=== PATIENT | female | born 1975 | race American Indian/Alaskan Native ===

== ENCOUNTER 2023-12-24 02:45 | Inpatient (IN) | payer OTHER ==
[~2023-12-24] VITALS: Ht 157.5 cm; Wt 109.3 kg
--- OUTSIDE RECORDS SUMMARY | 2023-12-24 02:46 | XMS ---
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 [place] VISIT COUNT (12 MO.) 1 [place] [place] TOTAL 1 NOTE: Visits indicate total known visits. ED/UCC VISIT TRACKING (12 MO.) 12/24/2023 02:45 [facility] TYPE: Emergency COMPLAINT: - ABD PAIN INPATIENT VISIT TRACKING (12 MO.) No inpatient visits to display in this time frame [id number]
[2023-12-24 03:10] LABS: BASOPHILS 0.4 % (0-2); EOSINOPHILS 0.7 % (0-6); HEMATOCRIT 40.1 % (35.0-50.0); HEMOGLOBIN 13.3 g/dL (12.0-18.0); LYMPHOCYTES 12.2 % (24-44); MCH 29.7 (27-36); MCHC 33.1 g/dl (30-36); MCV 89.8 fl (81-99); MONOCYTES 4.8 % (0-12); NEUTROPHILS 81.9 % (39-80); PLATELET COUNT 300 K/uL (140-440); RBC 4.47 M/ul (4.3-5.7); RDW 13.8 (10.5-15.0)
[2023-12-24] MEDS ORDERED: LACTATED RINGER'S 1,000 ML IV ONE (03:15)
[2023-12-24] MEDS ORDERED: KETOROLAC TROMETHAMINE 30 MG/ML VIAL IV ONE (03:15)
[2023-12-24] MEDS ORDERED: FAMOTIDINE 20 MG/ 2 ML VIAL IV ONE (03:15)
[2023-12-24] MEDS ORDERED: ondansetron HCL 4 MG/2 ML VIAL IV ONE (03:15)
[2023-12-24] MEDS ORDERED: HYDROmorphone HCL 1 MG/ML SYR IV PRN ×2 (03:15→14:15)
[2023-12-24 03:21] LABS: BILIRUBIN, URINE NEGATIVE (negative); BLOOD/HGB, URINE TRACE-L (Negative); KETONE, URINE NEGATIVE (Negative); LEUK ESTERASE, URINE NEGATIVE (negative); NITRITE, URINE NEGATIVE (negative); PH, URINE 7.5 (5-7)
[2023-12-24 03:28] LABS: EPITHELIAL CELLS, URINE SQUAMOUS 1+ /lpf (0-1+)
[2023-12-24 03:29] LABS: BACTERIA, URINE RARE /hpf (negative); CASTS, URINE NONE SEEN \\lpf; CRYSTALS, URINE NONE SEEN (0-1+); RED BLOOD CELLS, URINE 0-1 /hpf (0-5); REFLEX CULTURE, URINE No (No); WHITE BLOOD CELLS, URINE 0-1 /HPF (0-5)
[2023-12-24 03:31] LABS: ALBUMIN 3.6 g/dL (3.4-5.0); ALBUMIN/GLOBULIN RATIO 0.95 (1.1-2.4); ANION GAP 11.9 (7-21); BILIRUBIN, TOTAL 0.5 ng/dL (0.2-1.0); BUN/CREATININE RATIO 12.5 (6.0-28.6); CREATININE, SERUM 0.8 mg/dL (0.55-1.02); POTASSIUM 3.9 mmol/L (3.5-5.1); PROTEIN, TOTAL 7.4 g/dL (6.4-8.2)
[2023-12-24] MEDS ORDERED: LACTATED RINGER'S 1,000 ML IV SCH ×2 (03:45→06:00)
[2023-12-24] MEDS ORDERED: PIPERACILLIN/TAZOBACTAM 3.375 GM in DEXTROSE 5% 100 ML IV ONE (03:45)
[2023-12-24 03:56] LABS: LACTIC ACID, BLOOD 0.6 mmol/L (0.4-2.0)
[2023-12-24] MEDS ORDERED: DEXTROSE 5% 100 ML IV ONE (04:09)
[2023-12-24] MEDS ORDERED: AMLODIPINE BESYL5 MG PO (04:48)
[2023-12-24] MEDS ORDERED: ACYCLOVIR200 MG PO (04:48)
[2023-12-24] MEDS ORDERED: CYCLOBENZAPRINE10 MG PO (04:49)
[2023-12-24] MEDS ORDERED: VENTOLIN HFA18 GM INH (04:49)
[2023-12-24] MEDS ORDERED: ATORVASTATIN CA10 MG PO (04:49)
[2023-12-24] MEDS ORDERED: LO-DOSE ASPIRIN81 MG PO (04:50)
[2023-12-24] MEDS ORDERED: LOSARTAN POTASS50 MG PO (04:50)
[2023-12-24] MEDS ORDERED: MONTELUKAST SOD10 MG PO (04:51)
[2023-12-24] MEDS ORDERED: TRAZODONE HCL50 MG PO (04:51)
[2023-12-24] MEDS ORDERED: NAPROXEN500 MG PO (04:51)
[2023-12-24] MEDS ORDERED: DIAZEPAM5 MG PO (04:52)
[2023-12-24 06:35] LABS: CHOLESTEROL/HDL RATIO 3.3
[2023-12-24 07:39] VITALS: BP 137/82
[2023-12-24] MEDS ORDERED: ACETAMINOPHEN 325 MG TAB PO PRN (07:45)
[2023-12-24] MEDS ORDERED: PIPERACILLIN/TAZOBACTAM 4.5 GM in DEXTROSE 5% 100 ML IV SCH (08:00)
[2023-12-24] MEDS ORDERED: PANTOPRAZOLE SODIUM 40 MG TABEC PO SCH (09:00)
[2023-12-24 09:20] VITALS: BP 143/83
[2023-12-24] MEDS ORDERED: PHARMACY RENAL DOSE ADJUSTMENT 1 DOSE MISC PO SCH (12:00)
[2023-12-24 12:33] LABS: BASOPHILS 0.4 % (0-2); EOSINOPHILS 0.6 % (0-6); HEMATOCRIT 38.5 % (35.0-50.0); HEMOGLOBIN 12.6 g/dL (12.0-18.0); LYMPHOCYTES 10.7 % (24-44); MCH 29.7 (27-36); MCHC 32.7 g/dl (30-36); MCV 90.9 fl (81-99); MONOCYTES 5.5 % (0-12); NEUTROPHILS 82.8 % (39-80); PLATELET COUNT 261 K/uL (140-440); RBC 4.23 M/ul (4.3-5.7); RDW 13.4 (10.5-15.0)
[2023-12-24 12:38] LABS: ANION GAP 13.8 (7-21); BUN/CREATININE RATIO 6.02 (6.0-28.6); CALCIUM 8.9 mg/dL (8.5-10.1); CREATININE, SERUM 0.83 mg/dL (0.55-1.02); POTASSIUM 3.8 mmol/L (3.5-5.1)
[2023-12-24 13:40] VITALS: BP 143/85
[2023-12-24] MEDS ORDERED: ondansetron HCL 4 MG/2 ML VIAL IV PRN (18:00)
[2023-12-24] MEDS ORDERED: PROCHLORPERAZINE EDISYLATE 10 MG/2 ML VIAL IV PRN (18:00)
[2023-12-24 18:19] VITALS: BP 149/87
[2023-12-24 20:21] VITALS: BP 137/88
[2023-12-24 21:51] VITALS: BP 137/88
[2023-12-25] VITALS (10 sets, daily range): BP systolic 122–145; BP diastolic 74–88
[2023-12-25 05:34] LABS: BASOPHILS 0.5 % (0-2); EOSINOPHILS 0.4 % (0-6); HEMATOCRIT 37.7 % (35.0-50.0); HEMOGLOBIN 12.3 g/dL (12.0-18.0); LYMPHOCYTES 12.7 % (24-44); MCH 29.8 (27-36); MCHC 32.5 g/dl (30-36); MCV 91.5 fl (81-99); MONOCYTES 6.2 % (0-12); NEUTROPHILS 80.2 % (39-80); PLATELET COUNT 272 K/uL (140-440); RBC 4.12 M/ul (4.3-5.7); RDW 13.5 (10.5-15.0)
--- NOTE | 2023-12-25 05:34 | CONS ---
[facility] [address] [place], [place] [address] Signed DATE OF CONSULTATION: 12/24/2023 CHIEF COMPLAINT: Epigastric abdominal pain. HISTORY OF PRESENT ILLNESS: Mari is a 48-year-old obese female, who just had her right knee replaced on 10/14/2023 at [facility]. She said that she has been on a lot of different medications including tramadol, Tylenol, and naproxen. Things seem to be going well. For the last two days, she has had increasing epigastric and right upper quadrant abdominal pain radiating through to her back. She finally came to the emergency room for evaluation. She is a little tender more towards the epigastric area. White count was elevated. Alkaline phosphatase is up a little bit, but the ALT and AST are normal along with the total bilirubin. Lipase is slightly up at 90. She underwent an ultrasound and this was unremarkable. She then had a CT scan and it shows some inflammation and haziness around the inferior portion of head of the pancreas and the duodenum. She has one coarse calcification in that area. She was given some Zosyn and admitted to our internal medicine service. I have been asked to see her as a local general surgeon on-call. PAST MEDICAL HISTORY: Asthma and obesity. Also hypertension, hyperlipidemia. PAST SURGICAL HISTORY: Includes , bilateral tubal ligation and right total knee replacement on 10/14/2023 at [facility]. SOCIAL HISTORY: She quit smoking three years ago, but does smoke marijuana on a regular basis. She does not drink. Lis Holm is her primary care provider. Karen Soares is her mom at [phone] and her is Sanya. 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 She does drive. FAMILY HISTORY: She said she has lots of medical issues in her family and she reminded me that her aunt, Nona Soares of gallbladder cancer. REVIEW OF SYSTEMS: She had 10 systems reviewed and she talked mostly about her right knee replacement. ALLERGIES: Sertraline and horse dander. Electronically Signed By: ARIAS RIZVI MD 12/25/23 0534 PATIENT NAME: MARI LARRY CONSULTATION DATE OF : 79 REPORT #: [id number] PHYSICIAN: ARIAS RIZVI MD PCP: LIS HOLM REPORT IS CONFIDENTIAL AND NOT TO BE RELEASED WITHOUT AUTHORIZATION [facility] [address] [place], [place] [address] Signed MEDICATIONS: 1. Acyclovir. 2. Amlodipine. 3. Albuterol. 4. Atorvastatin. 5. Flexeril. 6. Aspirin. 7. Losartan. 8. Montelukast. 9. Naproxen. 10. Trazodone. 11. Diazepam. PHYSICAL EXAMINATION: VITAL SIGNS: Her blood pressure is 142/85, heart rate is 94, respiratory rate is 16, temperature is 97.7, she is 97% on room air. She is 5 feet 2 inches at 109 kg with a body mass index of 44. GENERAL: Mari is a 48-year-old obese female, lying supine in her hospital bed. Her and daughter and son are all in the room along with our nurse, . She is not jaundiced. She is in no acute distress. She is a good historian. LUNGS: Clear to auscultation bilaterally. HEART: Regular rate and rhythm without murmurs. ABDOMEN: Obese and soft but she is tender in the epigastric area more towards the 3rd portion of duodenum rather than over towards the gallbladder. LABORATORY DATA: White blood cell count is 17.7, neutrophils 82, glucose 124. Lactic acid 0.6. AST 13, ALT 26, alkaline phosphatase is 119, total bilirubin 0.5, albumin is 3.6, triglycerides are 194, lipase is 90, beta HCG negative. Blood cultures are pending x2. RADIOGRAPHIC STUDIES: The ultrasound today showed no gallbladder wall thickening, no stones, negative Leigh sign and common bile duct is [address] scan of the abdomen and pelvis today showed negative liver, negative gallbladder and negative common bile duct but there is some haziness in the inferior portion of the head of the pancreas and the duodenum. There is one coarse calcification in the head of the pancreas. She does have an IUD in place and is probably going to need consult with [employer] as it is probably penetrating some of the myometrium. ASSESSMENT AND PLAN: Mari is a 48-year-old obese female, who has developed some level of either pancreatitis or duodenitis about 2-1/2 months after her right total knee replacement. At this point, she is on conservative therapy including antibiotics. I did bring her a brochure on the gallbladder and we looked at the anatomy carefully. In addition, most orthopedic Electronically Signed By: ARIAS RIZVI MD 12/25/23 0534 PATIENT NAME: MARI LARRY CONSULTATION DATE OF : 79 REPORT #: [id number] PHYSICIAN: ARIAS RIZVI MD PCP: LIS HOLM REPORT IS CONFIDENTIAL AND NOT TO BE RELEASED WITHOUT AUTHORIZATION [place] [id number] [place] [address] Signed surgeons prefer the patients go at least three months for any elective surgeries after a total joint replacement. In addition, the area of pancreatitis and duodenum is a bit distal and inferior to what we normally would see associated with more common gallstone pancreatitis. Hopefully this will resolve. I have reviewed this with Mari and her family. They have expressed understanding and agreed with the above plan. Arias Rizvi MD ALB/MODL /[id number] cc: Lis Rizvi MD Copies: LIS HOLM ANDREW L MD ~ Electronically Signed By: ARIAS RIZVI MD 12/25/23 0534 PATIENT NAME: MARI LARRY CONSULTATION DATE OF : 79 REPORT #: [id number] PHYSICIAN: ARIAS RIZVI MD PCP: LIS HOLM REPORT IS CONFIDENTIAL AND NOT TO BE RELEASED WITHOUT AUTHORIZATION
[2023-12-25 05:49] LABS: ALBUMIN 2.9 g/dL (3.4-5.0); ALBUMIN/GLOBULIN RATIO 0.74 (1.1-2.4); ANION GAP 12.7 (7-21); BILIRUBIN, TOTAL 0.5 ng/dL (0.2-1.0); BUN/CREATININE RATIO 7.31 (6.0-28.6); CALCIUM 8.4 mg/dL (8.5-10.1); CREATININE, SERUM 0.82 mg/dL (0.55-1.02); MAGNESIUM 1.5 mg/dL (1.8-2.4); PHOSPHORUS, INORGANIC 3.4 mg/dL (2.5-4.9); POTASSIUM 3.7 mmol/L (3.5-5.1); PROTEIN, TOTAL 6.8 g/dL (6.4-8.2)
[2023-12-25] MEDS ORDERED: MAGNESIUM SULFATE 2 GM/50 ML BAG IV ONE ×2 (07:00→09:00)
[2023-12-25] MEDS ORDERED: HYDROmorphone HCL 1 MG/ML SYR IV PRN (10:00)
[2023-12-26] VITALS (9 sets, daily range): BP systolic 126–159; BP diastolic 79–90
[2023-12-26 05:45] LABS: BASOPHILS 0.7 % (0-2); EOSINOPHILS 0.7 % (0-6); HEMATOCRIT 37.3 % (35.0-50.0); LYMPHOCYTES 24.6 % (24-44); MCH 29.4 (27-36); MCHC 32.1 g/dl (30-36); MCV 91.3 fl (81-99); MONOCYTES 7.6 % (0-12); NEUTROPHILS 66.4 % (39-80); PLATELET COUNT 288 K/uL (140-440); RBC 4.08 M/ul (4.3-5.7); RDW 13.3 (10.5-15.0)
[2023-12-26 06:06] LABS: ALBUMIN 2.8 g/dL (3.4-5.0); ALBUMIN/GLOBULIN RATIO 0.7 (1.1-2.4); ANION GAP 9.4 (7-21); BILIRUBIN, TOTAL 0.4 ng/dL (0.2-1.0); BUN/CREATININE RATIO 9.78 (6.0-28.6); CALCIUM 8.4 mg/dL (8.5-10.1); CREATININE, SERUM 0.92 mg/dL (0.55-1.02); MAGNESIUM 1.9 mg/dL (1.8-2.4); PHOSPHORUS, INORGANIC 3.1 mg/dL (2.5-4.9); POTASSIUM 3.4 mmol/L (3.5-5.1); PROTEIN, TOTAL 6.8 g/dL (6.4-8.2)
[2023-12-26] MEDS ORDERED: POTASSIUM CHLORIDE 40 MEQ,LIDOCAINE HCL 1% 40 MG in DEXTROSE 5% 250 ML IV ONE (08:00)
[2023-12-26] MEDS ORDERED: POTASSIUM CHLORIDE 10 MEQ/100 ML BAG IV SCH (09:00)
[2023-12-26] MEDS ORDERED: diazePAM 5 MG TAB PO PRN (11:00)
[2023-12-26] MEDS ORDERED: TRAZODONE HCL 50 MG TAB PO SCH (21:00)
[2023-12-26] MEDS ORDERED: MONTELUKAST SODIUM 10 MG TAB PO SCH (21:00)
[2023-12-27] VITALS (9 sets, daily range): BP systolic 127–155; BP diastolic 76–95
[2023-12-27 05:34] LABS: BASOPHILS 0.6 % (0-2); EOSINOPHILS 1.8 % (0-6); HEMATOCRIT 33.9 % (35.0-50.0); HEMOGLOBIN 11.2 g/dL (12.0-18.0); LYMPHOCYTES 28.9 % (24-44); MCHC 33.1 g/dl (30-36); MCV 90.7 fl (81-99); MONOCYTES 7.8 % (0-12); NEUTROPHILS 60.9 % (39-80); PLATELET COUNT 298 K/uL (140-440); RBC 3.74 M/ul (4.3-5.7)
[2023-12-27 05:49] LABS: ALBUMIN 2.6 g/dL (3.4-5.0); ALBUMIN/GLOBULIN RATIO 0.72 (1.1-2.4); ANION GAP 8.7 (7-21); BILIRUBIN, TOTAL 0.5 ng/dL (0.2-1.0); BUN/CREATININE RATIO 4.9 (6.0-28.6); CALCIUM 8.5 mg/dL (8.5-10.1); CREATININE, SERUM 1.02 mg/dL (0.55-1.02); POTASSIUM 3.7 mmol/L (3.5-5.1); PROTEIN, TOTAL 6.2 g/dL (6.4-8.2)
[2023-12-28 05:25] LABS: BASOPHILS 0.7 % (0-2); EOSINOPHILS 3.3 % (0-6); HEMATOCRIT 36.5 % (35.0-50.0); HEMOGLOBIN 12.1 g/dL (12.0-18.0); LYMPHOCYTES 27.5 % (24-44); MCH 29.9 (27-36); MCHC 33.3 g/dl (30-36); MCV 89.6 fl (81-99); MONOCYTES 8.4 % (0-12); NEUTROPHILS 60.1 % (39-80); PLATELET COUNT 330 K/uL (140-440); RBC 4.07 M/ul (4.3-5.7); RDW 13.4 (10.5-15.0)
[2023-12-28 05:38] LABS: ALBUMIN 2.6 g/dL (3.4-5.0); ALBUMIN/GLOBULIN RATIO 0.65 (1.1-2.4); ANION GAP 9.9 (7-21); BILIRUBIN, TOTAL 0.3 ng/dL (0.2-1.0); BUN/CREATININE RATIO 3.8 (6.0-28.6); CALCIUM 8.7 mg/dL (8.5-10.1); CREATININE, SERUM 1.05 mg/dL (0.55-1.02); POTASSIUM 3.9 mmol/L (3.5-5.1); PROTEIN, TOTAL 6.6 g/dL (6.4-8.2)
[2023-12-28 05:41] VITALS: BP 135/88
[2023-12-28 05:47] VITALS: BP 135/88
[2023-12-28 09:19] VITALS: BP 139/85
== END 2023-12-28 10:52 | disposition home or self-care (01) | DRG 391 ==
LOC: ED 02:45 → MS 02:46
PROVIDERS: Colon & Rectal Surgery; Internal Medicine; ADMIT Internal Medicine; ATTEND Family Medicine
DX: K29.80 Duodenitis without bleeding (principal); K85.90 Acute pancreatitis without necrosis or infection, unspecified; Z68.41 Body mass index [BMI] 40.0-44.9, adult; E78.00 Pure hypercholesterolemia, unspecified; I10 Essential (primary) hypertension; E83.42 Hypomagnesemia; E87.6 Hypokalemia; T83.32XA Displacement of intrauterine contraceptive device, initial encounter; J45.909 Unspecified asthma, uncomplicated; Z96.651 Presence of right artificial knee joint; E66.01 Morbid (severe) obesity due to excess calories; Z87.891 Personal history of nicotine dependence
CPT/HCPCS: 36415; 74177; 76705; 80048; 80053; 80061; 81001; 83036; 83605; 83690; 83735; 84100; 84703; 85025; 87040; 96361; 96367; 96375; 96376; 99285-25; A9270; G0378; J0780; J1170; J1885; J2405; J2543; J3475; J3480; J7121; Q9967

== ENCOUNTER 2025-06-13 11:17 | Emergency (ER) | payer OTHER ==
[~2025-06-13] VITALS: Ht 157.5 cm; Wt 104.0 kg
[~2025-06-13 11:17] MED LIST: ACYCLOVIR200 MG PO; AMLODIPINE BESYL5 MG PO; ATORVASTATIN CA10 MG PO; CYCLOBENZAPRINE10 MG PO; DIAZEPAM5 MG PO; LO-DOSE ASPIRIN81 MG PO; LOSARTAN POTASS50 MG PO; MONTELUKAST SOD10 MG PO; NAPROXEN500 MG PO; PEPCID20 MG PO; PROMETHAZINE HC25 M1 PO; TRAZODONE HCL50 MG PO; VENTOLIN HFA18 GM INH
[2025-06-13] MEDS ORDERED: GABAPENTIN300 MG PO (11:34)
[2025-06-13 12:27] VITALS: BP 125/81
== END 2025-06-13 12:42 | disposition home or self-care (01) ==
LOC: ED 11:17
DX: S83.92XA Sprain of unspecified site of left knee, initial encounter (principal); J45.909 Unspecified asthma, uncomplicated; I10 Essential (primary) hypertension; F17.200 Nicotine dependence, unspecified, uncomplicated; Z88.8 Allergy status to other drugs, medicaments and biological substances; Z79.899 Other long term (current) drug therapy; X50.1XXA Overexertion from prolonged static or awkward postures, initial encounter
CPT/HCPCS: 73560; 99283